=== PATIENT | female | born 1995 | race Caucasian/White ===

== ENCOUNTER 2024-12-09 11:27 | Inpatient (IN) | payer OTHER ==
[~2024-12-09] VITALS: Ht 167.6 cm; Wt 68.6 kg
[2024-12-09] MEDS: NICOTINE 14 MG/24 HR TRANSDERMAL TD SCH (09:00)
[2024-12-09] MEDS ORDERED: ONDA-83 PO (11:44)
[2024-12-09] MEDS ORDERED: KLON1TAB13 PO (11:44)
[2024-12-09] MEDS ORDERED: VALT500T PO (11:44)
[2024-12-09] MEDS ORDERED: COLA100C5 PO (11:44)
[2024-12-09] MEDS ORDERED: ADDE20CA3 PO (11:44)
[2024-12-09] MEDS ORDERED: MAGN125C PO (11:44)
[2024-12-09] MEDS ORDERED: LEXA1TAB PO (11:44)
[2024-12-09] MEDS ORDERED: PREN1CHW6 PO (11:44)
[2024-12-09] MEDS ORDERED: HYDR-3363 PO (12:13)
[2024-12-09 12:27] LABS: PLATELET COUNT, AUTOMATED 253 10^3/uL (150-450)
[2024-12-09 12:47] LABS: ETHYL ALCOHOL (ETHANOL) < 0.003 % (0.000-0.010)
[2024-12-09 12:49] LABS: ALT/SGPT 16 U/L (7.0-40); AST/SGOT 15 U/L (<34); CALCIUM LEVEL 9.6 MG/DL (8.5-10.1); CARBON DIOXIDE LEVEL 28 MMOL/L (20-31); CHLORIDE LEVEL 105 MMOL/L (98-107); CREATININE FOR GFR 0.57 MG/DL (0.55-1.30); GLOMERULAR FILTRATION RATE > 90.0 (>60); POTASSIUM SERUM 3.4 MMOL/L (3.5-5.1); SALICYLATE LEVEL < 3.0 MG/DL (<30); SODIUM LEVEL 142 MMOL/L (136-145)
[2024-12-09 12:55] LABS: HCG, SERUM QUALITATIVE POSITIVE (NEGATIVE)
[2024-12-09 13:00] LABS: BARBITURATES URINE NEGATIVE (NEGATIVE); BENZODIAZEPINES URINE NEGATIVE (NEGATIVE); COCAINE METABOLITE URINE NEGATIVE (NEGATIVE); METHADONE URINE NEGATIVE (NEGATIVE); OPIATES URINE NEGATIVE (NEGATIVE); PHENCYCLIDINE URINE NEGATIVE (NEGATIVE)
[2024-12-09 13:03] LABS: AMPHETAMINES LEVEL URINE POSITIVE (NEGATIVE); CANNABINOIDS URINE POSITIVE (NEGATIVE)
[2024-12-09 13:36] LABS: HCG, SERUM QUANTITATIVE 62338.9 MIU/ML (<4.2)
[2024-12-09] MEDS: NICOTINE POLACRILEX 2 MG GUM PO PRN (14:53)
[2024-12-09] MEDS ORDERED: HALOPERIDOL 5 MG TAB PO PRN (14:55)
[2024-12-09] MEDS ORDERED: MAALOX 30 ML SUSP *UDC PO PRN (14:55)
[2024-12-09] MEDS ORDERED: MOM 30 ML SUSPENSION UDC PO PRN (14:55)
[2024-12-09] MEDS ORDERED: traZODone 50 MG TAB PO PRN (14:55)
[2024-12-09] MEDS ORDERED: ACETAMINOPHEN 325 MG TAB PO PRN (14:55)
[2024-12-09] MEDS: OLANZapine 5 MG TAB PO PRN (15:39)
[2024-12-09] MEDS ORDERED: MAGN250T7 PO (15:40)
[2024-12-09] MEDS ORDERED: HOME MED LIST COMPLETE! XX SCH (15:45)
[2024-12-09] MEDS: DOCUSATE SODIUM 100 MG CAPSULE PO SCH (21:00)
[2024-12-09] MEDS ORDERED: ONDANSETRON 4MG TAB PO PRN (21:55)
[2024-12-10 06:38] VITALS: BP 119/66; TEMP 97.8; O2SAT 95
[2024-12-10] MEDS: ESCITALOPRAM OXALATE 10 MG TABLET PO SCH (08:37)
[2024-12-10] MEDS ORDERED: PRENATAL VITAMINS CHEWABLE TABLET PO SCH (09:00)
== END 2024-12-10 14:02 | disposition home or self-care (01) | DRG 566 ==
LOC: M ED 11:27 → M ED INP 14:55 → M PSY 20:17
PROVIDERS: ADMIT Internal Medicine; ATTEND Internal Medicine
DX: O99.341 Other mental disorders complicating pregnancy, first trimester (principal); O99.351 Diseases of the nervous system complicating pregnancy, first trimester; F60.3 Borderline personality disorder; F41.1 Generalized anxiety disorder; F43.10 Post-traumatic stress disorder, unspecified; O48.0 Post-term pregnancy; O99.331 Smoking (tobacco) complicating pregnancy, first trimester; F17.200 Nicotine dependence, unspecified, uncomplicated; G43.909 Migraine, unspecified, not intractable, without status migrainosus; Z79.899 Other long term (current) drug therapy; Z88.8 Allergy status to other drugs, medicaments and biological substances; Z3A.08 8 weeks gestation of pregnancy

== ENCOUNTER → 2025-01-01 | Outpatient (REF) | payer OTHER ==
[~2025-01-01] MED LIST: ADDE20CA3 PO; COLA100C5 PO; HYDR-3363 PO; KLON1TAB13 PO; LEXA1TAB PO; MAGN125C PO; MAGN250T7 PO; ONDA-83 PO; PREN1CHW6 PO; VALT500T PO
== END ==
LOC: M PLALAB 10:37
PROVIDERS: ATTEND Advanced Practice Midwife
DX: Z34.81 Encounter for supervision of other normal pregnancy, first trimester (principal)

== ENCOUNTER → 2025-01-01 | Outpatient (CLI) | payer OTHER ==
[2025-01-01 14:05] LABS: PLATELET COUNT, AUTOMATED 269 10^3/uL (150-450)
[2025-01-01 14:43] LABS: Trichomonas vaginalis (AMP) NOT DETECTED (NEGATIVE)
[2025-01-01 15:06] LABS: GC DNA AMPLIFICATION NEGATIVE (NEGATIVE); HIV 1&2 SCREEN NEGATIVE (NEGATIVE)
[2025-01-01 15:15] LABS: HEPATITIS C VIRUS ABY INDEX < 0.02 INDEX (<0.8)
== END ==
LOC: M PLALAB 10:54
PROVIDERS: ATTEND Advanced Practice Midwife
DX: Z34.81 Encounter for supervision of other normal pregnancy, first trimester (principal)

== ENCOUNTER → 2025-03-08 | Outpatient (CLI) | payer OTHER | LOC: M WHC 09:21 | PROVIDERS: ATTEND Student in an Organized Health Care Education/Training Program | DX: Z34.82 Encounter for supervision of other normal pregnancy, second trimester (principal); Z3A.20 20 weeks gestation of pregnancy ==